=== PATIENT | male | born 1955 | race Caucasian/White ===

== ENCOUNTER 2025-10-07 08:13 | Day surgery (SDC) | payer BC ==
[2025-10-07] VITALS (7 sets, daily range): BP systolic 93–133; BP diastolic 48–66; PULSE 52–62; RESP 12–22; O2SAT 95–99
[~2025-10-07] VITALS: Ht 170.2 cm; Wt 77.2 kg
[~2025-10-07 08:13] MED LIST: AMLO-380 PO; ATOR10TA70 PO; ESCI-8 PO; TAMSULOSIN PO; ringers solution, lacted 1,000 ML IV SCH
[2025-10-07] MEDS ORDERED: propofol inj 20 ML IV ONE ×2 (10:47)
== END 2025-10-07 11:45 | disposition home or self-care (01) ==
LOC: PAS 08:13
PROVIDERS: ATTEND Internal Medicine Gastroenterology
DX: Z12.11 Encounter for screening for malignant neoplasm of colon (principal); K57.30 Diverticulosis of large intestine without perforation or abscess without bleeding; I12.9 Hypertensive chronic kidney disease with stage 1 through stage 4 chronic kidney disease, or unspecified chronic kidney disease; N18.32 Chronic kidney disease, stage 3b; E78.5 Hyperlipidemia, unspecified; Z86.0100 Personal history of colon polyps, unspecified; Z90.89 Acquired absence of other organs; Z79.899 Other long term (current) drug therapy
CPT/HCPCS: 45378; J2704; J7120; Z7512; A4615